=== PATIENT | female | born 1950 | race Asian ===

== ENCOUNTER 2018-08-22 03:45 | Emergency (ER) | payer OTHER ==
[~2018-08-22] VITALS: Ht 162.6 cm; Wt 72.7 kg
[2018-08-22 03:55] VITALS: Ht 162.6 cm; Wt 72.7 kg
[2018-08-22] MEDS ORDERED: CEFEPIME 2GM/50 ML (PMX) 50 ML IVPB STA (04:03)
[2018-08-22] MEDS ORDERED: ACETAMINOPHEN 325 MG TAB PO STA (04:03)
[2018-08-22] MEDS ORDERED: SOD CHLORIDE 0.9% IV ONE (04:30)
[2018-08-22] MEDS ORDERED: VANCOMYCIN 1 GM (PMX) 250 ML IVPB ONE (04:30)
--- NOTE | 2018-08-22 05:05 | ERD ---
ER Documentation Chief Complaint Chief Complaint bib ra for nause/vomit and fever HPI This is a very pleasant [age]-year-old female brought in by rescue for nausea vomiting and fever. She states she has been having fevers over the past 2 days. Vomiting started today for 5 episodes nonbilious nonbloody. Denies any sick contacts or any recent travel. Does complain of some body aches as well. Denies any runny nose or cough. Denies any other current issues. Denies any abdominal pain. ROS All systems reviewed and are negative except as per history of present illness. Allergies Allergies: Coded Allergies: lisinopril (Verified Allergy, Unknown, 08/22/18) PMhx/Soc Medical and Surgical Hx: pt denies Surgical Hx Hx Cardiac Disorders: Yes (HTN HLD) Hx Psychiatric Problems: No Hx Miscellaneous Medical Probl: No Hx Alcohol Use: No Hx Substance Use: No Hx Tobacco Use: No Smoking Status: Never smoker Physical Exam Vitals Vital Signs Date Temp Pulse Resp B/P (MAP) Pulse Ox O2 O2 Flow FiO2 Time Delivery Rate 08/22/18 100.1 108 18 124/109 98 Nasal 2.0 04:54 (114) Cannula 08/22/18 Nasal 2 04:34 Cannula 08/22/18 103.1 04:16 08/22/18 104.0 119 22 158/77 92 03:55 (104) Physical Exam Const: No acute distress Head: Atraumatic Eyes: Normal Conjunctiva ENT: Normal External Ears, Nose and Mouth. Neck: Full range of motion. No meningismus. Resp: Clear to auscultation bilaterally Cardio: Regular rate and rhythm, no murmurs Abd: Soft, non tender, non distended. Normal bowel sounds Skin: No petechiae or rashes Back: No midline or flank tenderness Ext: No cyanosis, or edema Neur: Awake and alert Psych: Normal Mood and Affect Result Diagram: 08/22/18 0406 08/22/18 0406 Results 24 hrs Laboratory Tests Test 08/22/18 04:06 08/22/18 04:22 08/22/18 04:28 White Blood Count 8.3 10^3/ul Red Blood Count 4.59 10^6/ul Hemoglobin 13.5 g/dl Hematocrit 40.9 % Mean Corpuscular Volume 89.1 fl Mean Corpuscular Hemoglobin 29.4 pg Mean Corpuscular 33.0 g/dl Hemoglobin Concent Red Cell Distribution Width 12.1 % Platelet Count 290 10^3/UL Mean Platelet Volume 10.1 fl Immature Granulocytes % 0.600 % Neutrophils % 81.6 % Lymphocytes % 14.8 % Monocytes % 1.6 % Eosinophils % 1.2 % Basophils % 0.2 % Nucleated Red Blood Cells % 0.0 /100WBC Immature Granulocytes # 0.050 10^3/ul Neutrophils # 6.8 10^3/ul Lymphocytes # 1.2 10^3/ul Monocytes # 0.1 10^3/ul Eosinophils # 0.1 10^3/ul Basophils # 0.0 10^3/ul Nucleated Red Blood Cells # 0.0 10^3/ul Prothrombin Time 12.1 Sec Prothrombin Time Ratio 0.9 INR International 0.89 Normalized Ratio Activated Partial Thromboplast 23.2 Sec Time Sodium Level 142 mmol/L Potassium Level 3.6 mmol/L Chloride Level 106 mmol/L Carbon Dioxide Level 26 mmol/L Anion Gap 10 Blood Urea Nitrogen 17 mg/dl Creatinine 0.71 mg/dl Est Glomerular Filtrat > 60 mL/min Rate mL/min Glucose Level 194 mg/dl Calcium Level 10.3 mg/dl Total Bilirubin 0.9 mg/dl Direct Bilirubin 0.60 mg/dl Indirect Bilirubin 0.3 mg/dl Aspartate Amino 569 IU/L Transf (AST/SGOT) Alanine 329 IU/L Aminotransferase (ALT/SGPT) Alkaline Phosphatase 90 IU/L Troponin I < 0.012 ng/ml Total Protein 7.0 g/dl Albumin 4.0 g/dl Globulin 3.00 g/dl Albumin/Globulin Ratio 1.33 POC Venous Lactate 2.9 mmol/L Urine Color YELLOW Urine Clarity CLEAR Urine pH 7.0 Urine Specific [place] 1.010 Urine Ketones NEGATIVE mg/dL Urine Nitrite NEGATIVE mg/dL Urine Bilirubin NEGATIVE mg/dL Urine Urobilinogen 1+ mg/dL Urine Leukocyte Esterase NEGATIVE [place]/ul Urine Hemoglobin NEGATIVE mg/dL Urine Glucose NEGATIVE mg/dL Urine Total Protein NEGATIVE mg/dl Current Medications Medications Dose Sig/Ese Start Time Status Last (Trade) Ordered Route PRN Stop Time Admin Dose Reason Admin 650 mg ONCE STAT 08/22/18 DC 08/22/18 Acetaminophen PO 04:03 04:16 (Tylenol 08/22/18 04:05 Tab) Cefepime HCl 50 ml @ ONCE STAT 08/22/18 DC 08/22/18 100 mls/hr IVPB 04:03 04:31 08/22/18 04:32 Vancomycin 250 ml @ ONCE ONCE 08/22/18 08/22/18 HCl 125 mls/hr IVPB 04:30 04:54 08/22/18 06:29 Sodium 2,180 ml @ BOLUS X1 08/22/18 08/22/18 Chloride 2,180 mls/hr ONCE IV 04:30 04:16 08/22/18 05:29 Procedures/MDM EKG: Rate/Rhythm: [Normal Sinus Rhythm] QRS, ST, T-waves: [No changes consistent w/ acute ischemia] Impression: [No evidence of ischemia or arrhythmia] Chest X-ray 1V Interpreted by me: Soft Tissue: No acute abnormalities Bones: No acute abnormalities Mediastinum/Cardiac Silhouette/Lungs: [No acute abnormalities] Patient's infectious symptoms have not stabilized and the patient is at risk of rapid decompensation. The patient will be admitted for careful hydration, antibiotic therapy, and infectious source control. Severe Sepsis Assessment: Infectious Source: Currently unknown End organ damage indicated by: [Lactate > 2.0 mmol/L Acute Resp Failure (sat < 92% w/o oxygen) Severe Sepsis Managment: Blood Cultures X 2 before broad spectrum antibiotics initiated within 3 hours of recognition. Recognized at 3:45 AM 30 ml/kg NS bolus Completed Initial Lactate: 2.9 Repeat Lactate pending Critical Care: Time: 45 minutes, independent of any separately billable procedural time Treatments/Evaluations: Emergent fluid management, while maintaining close respiratory support. Immediate broad spectrum antibiotic therapy. Simultaneous assessment for possible sources in order to direct therapy. Consideration for invasive and chemical support to prevent respiratory or cardiac collapse. Septic Shock Assessment (1 hour post 30 ml/kg fluid bolus): Hypotension (SBP < 90 or 40 mmHg drop, MAP < 65): [No] Lactic acid > 4.0 [No] Perfusion Reassessment for Septic Shock: Temp 98.1 pulse 101, RR 18, BP 124/97 Heart Exam: [Tachycardic] Lung Exam: [No Crackles] Capillary Refill: [Delayed] Peripheral Pulses: [Radially present] Skin: [Mottled, pale] Accepting Care Team: Current data and ongoing care discussed. Time: 5 AM Primary Provider: Dr. Watters at [facility] Consulting: Deferred to [place] Outstanding Data: none Departure Diagnosis: Primary Impression: Sepsis Sepsis type: sepsis due to unspecified organism Qualified Codes: A41.9 - Sepsis, unspecified organism Condition: Serious JC MIGUEL Aug 22, 2018 05:05
[2018-08-22 07:50] VITALS: BP 113/78; PULSE 101; RESP 18
[2018-08-22] MEDS ORDERED: ONDANSETRON 4 MG INJ ONE (08:50)
[2018-08-22] MEDS ORDERED: ONDANSETRON 4 MG INJ IV STA (08:53)
== END 2018-08-22 10:58 | disposition short-term general hospital (02) ==
LOC: E/R 03:45
DX: A41.9 Sepsis, unspecified organism (principal); I10 Essential (primary) hypertension
CPT/HCPCS: 36415; 71045; 76705; 80053; 81003; 83605; 84484; 85025; 85610; 85730; 87040; 87086; 93005; 96374; 96375; 99285; J0692; J2405; J3370; J7030